=== PATIENT | male | born 1955 | race Caucasian/White ===

== ENCOUNTER 2017-02-28 15:23 | Emergency (ER) | payer BC ==
[2017-02-28 15:37] VITALS: BP 150/75
--- OUTSIDE RECORDS SUMMARY | 2017-02-28 17:14 | XMS REPORT ---
:1955 External Reference #:[id number] Author Organization [facility] Address [address] [place] [address] Phone [phone] Care Team Providers Name Role Phone Marilin Joyce M.D. Care Team Information Plant Machinist Unavailable Marilin Joyce M.D. Primary Care Physician Unavailable Payers Type Date Identification Numbers Payment Provider Subscriber Commercial Policy Number: [id number] [facility] Oneal Henderson [place] PayID: [id number] 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 Active Onset: 04/25/2014 Lymphedema Jarred Webster M.D. Active Onset: 08/17/2013 Difficulty speaking Jarred Webster M.D. Active Onset: 08/17/2013 Tobacco user Jarred Webster M.D. 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 Family History Date Family Member(s) Problem(s) Comments Father Cancer Father Heart Attack Father Stroke Paternal Grandfather due to Diabetes () Paternal Grandmother due to Unknown Causes () Social History Type Date Description Comments Occupation Job Setter Cigarette Use for 15 yrs Was a 1 1/2 pack smoker for 14 years quit 2013 Cigars Former Cigar Smoker 1 Daily Smoked for 15 years Pipe Never Smoked A Pipe Smokeless Tobacco Never Used Smokeless Tobacco ETOH Use Currently rarely consumes alcohol Smoking Patient is a former smoker Allergies, Adverse Reactions, Alerts Date Description Reaction Status Severity Comments 04/01/2007 None active Medications Medication Date Status Form Strength Qnty SIG Indications Ordering Provider Prednisone 02/04/ Active Tablets 10mg 120tab 60 mg a day H91.21 Jarred Louis s for 14 days, Strominge 40 mg a day r, M.D. for 4 days, 20 mg a day for 4 days, 10 mg a day for 4 days, then 5 mg a day for 4 days No Active 12/30/ Hx Unknown Medications 2016 - 2016 Ketoconazole 11/26/ Hx Tablets 200mg 7tabs Take 1 B37.0 Jarred Hunt 2016 - tablet by Strominge 12/29/ mouth daily r, M.DWes 2016 for 1 week for infection No Active 02/26/ Hx Unknown Medications 2014 - 2016 No Active 11/27/ Hx Unknown Medications 2014 - 2014 None 04/01/ Hx Graham Manriquez, 08/09/ 2013 Janumet / Hx 50-500mg one po bid Joyce, 0000 - Marilin 07/24/ M.D. 2014 Atorvastatin / Hx 20mg one tablet Joyce, Calcium 0000 - at hs Marilin 11/27/ M.DWes 2015 Viagra / Hx 50mg As needed Joyce, 0000 - before Marilin 08/17/ sexual M.DWes 2014 intercourse Nicotine Step / Hx 14mg/24 apply patch Joyce, 2 0000 - Hour once daily Marilin 08/17/ M.DWes 2014 Multi For Him / Hx once daily Self - 2013 Hydrocodone / Hx Solution 7.5-325mg/ 500ml 7.5 Mackey, Bitartrate/Aron 0000 - 15ML hydrocodone Marco Serrano taminophen 07/24/ by mouth 2014 every 4 hours as needed pain Magic Mouth / Hx as directed John Rodrigues 0000 - Lex 02/26/ Dexter Serrano 2015 Immunizations CPT Code Status Date Vaccine Lot # [id number] Given 02/07/2014 Influenza Virus Vaccine, 3 Years Of Age And Above, Intramuscular Vital Signs Date Vital Result Comment 02/04/2017 BP Systolic 142 mmHg BP Diastolic 84 mmHg Heart Rate 74 /min Respiratory Rate 17 /min Weight 265.00 lb Weight in kg's 120.204 Height 71 inches 5'11" Height in cm's 180.3 cm BMI (Body Mass Index) 37.0 kg/m2 12/30/2016 BP Systolic 154 mmHg BP Diastolic 98 mmHg Heart Rate 96 /min Respiratory Rate 18 /min Weight 265.00 lb Weight in kg's 120.204 Height 71 inches 5'11" Height in cm's 180.3 cm BMI (Body Mass Index) 37.0 kg/m2 11/26/2016 BP Systolic 141 mmHg BP Diastolic 85 mmHg Heart Rate 84 /min Weight 265.00 lb Weight in kg's 120.204 Height 71 inches 5'11" Height in cm's 180.3 cm BMI (Body Mass Index) 37.0 kg/m2 05/06/2016 Weight 254.00 lb Weight in kg's 115.214 Height 71 inches 5'11" Height in cm's 180.3 cm BMI (Body Mass Index) 35.4 kg/m2 10/30/2015 BP Systolic 137 mmHg BP Diastolic 77 mmHg Heart Rate 70 /min Respiratory Rate 17 /min Weight 246.00 lb Weight in kg's 111.586 Height 71 inches 5'11" Height in cm's 180.3 cm BMI (Body Mass Index) 34.3 kg/m2 02/26/2015 BP Systolic 120 mmHg BP Diastolic 75 mmHg Heart Rate 73 /min Respiratory Rate 17 /min Weight 206.00 lb Weight in kg's 93.442 Height 71 inches 5'11" Height in cm's 180.3 cm BMI (Body Mass Index) 28.7 kg/m2 11/27/2014 BP Systolic 125 mmHg BP Diastolic 75 mmHg Heart Rate 75 /min Respiratory Rate 17 /min Weight 170.00 lb Weight in kg's 77.112 Height 71 inches 5'11" Height in cm's 180.3 cm BMI (Body Mass Index) 23.7 kg/m2 10/17/2014 BP Systolic 112 mmHg BP Diastolic 67 mmHg Heart Rate 81 /min Respiratory Rate 17 /min Weight 160.00 lb Weight in kg's 72.576 Height 71 inches 5'11" Height in cm's 180.3 cm BMI (Body Mass Index) 22.3 kg/m2 O2 % BldC Oximetry 99 % walked the pt for 5mins O2 sat 95% rm air 07/24/2014 BP Systolic 104 mmHg BP Diastolic 76 mmHg Heart Rate 81 /min Respiratory Rate 17 /min Weight 199.00 lb Weight in kg's 90.266 Height 72 inches 6'0" Height in cm's 182.9 cm BMI (Body Mass Index) 27.0 kg/m2 04/25/2014 BP Systolic 139 mmHg BP Diastolic 83 mmHg Heart Rate 83 /min Respiratory Rate 17 /min Weight 199.00 lb Weight in kg's 90.266 Height 72 inches 6'0" Height in cm's 182.9 cm BMI (Body Mass Index) 27.0 kg/m2 03/20/2014 BP Systolic 117 mmHg BP Diastolic 71 mmHg Heart Rate 71 /min Respiratory Rate 17 /min Weight 199.00 lb Weight in kg's 90.266 Height 72 inches 6'0" Height in cm's 182.9 cm BMI (Body Mass Index) 27.0 kg/m2 02/13/2014 BP Systolic 110 mmHg BP Diastolic 66 mmHg Heart Rate 83 /min Respiratory Rate 17 /min Weight 209.00 lb Weight in kg's 94.802 Height 72 inches 6'0" Height in cm's 182.9 cm BMI (Body Mass Index) 28.3 kg/m2 09/13/2013 BP Systolic 133 mmHg BP Diastolic 81 mmHg Heart Rate 94 /min Respiratory Rate 16 /min Weight 271.00 lb Weight in kg's 122.926 Height 72 inches 6'0" Height in cm's 182.9 cm BMI (Body Mass Index) 36.8 kg/m2 09/06/2013 BP Systolic 157 mmHg BP Diastolic 120 mmHg Heart Rate 88 /min Respiratory Rate 16 /min Weight 274.00 lb Weight in kg's 124.286 Height 72 inches 6'0" Height in cm's 182.9 cm BMI (Body Mass Index) 37.2 kg/m2 08/17/2013 BP Systolic 145 mmHg BP Diastolic 90 mmHg Heart Rate 87 /min Respiratory Rate 16 /min Weight 274.00 lb Weight in kg's 124.286 Height 72 inches 6'0" Height in cm's 182.9 cm BMI (Body Mass Index) 37.2 kg/m2 04/01/2007 BP Systolic 93 mmHg BP Diastolic 79 mmHg Heart Rate 96 /min Respiratory Rate 14 /min Results Test Date Test Result H/L Range Note Laboratory test finding 09/12/2013 Blood Urea Nitrogen 14 mg/dL 6-24 Creatinine 09/12/2013 Creatinine 0.86 mg/dL 0.67-1.17 Egfr Non- 91.7 >60 Egfr 117.9 >60 1 Surgical Pathology 09/07/2013 S RUN DATE: 09/09/ <SEE NOTE> 2 1 Because ethnic data is not always readily available, this report includes an eGFR for both -Americans and non- Americans. The National Kidney Disease Education Program (NKDEP) does not endorse the use of the MDRD equation for patients that are not between the ages of 18 and 70, are , have extremes of body size, muscle mass, or nutritional status, or are non- or non-. According to the National Kidney Foundation, irrespective of diagnosis, the stage of the disease is based on the level of kidney function: Stage Description GFR(mL/min/1.73 m(2)) 1 Kidney damage with normal or decreased GFR 90 2 Kidney damage with mild decrease in GFR 60-89 3 Moderate decrease in GFR 30-59 4 Severe decrease in GFR 15-29 5 Kidney failure <15 (or dialysis) 2 RUN DATE: 09/09/13 [facility] LAB LIVE PAGE 1 RUN TIME: [address] [place] [id number] Specimen Inquiry Name: ONEAL HENDERSON : [address]: Jarred Webster MD Acct: [id number] Unit: [id number] AGE: 58 Location: OR Re09/07/13 SEX: M Status: REG SDC SPEC: [id number] DRU: 09/07/13- [facility] DR: Jarred Webster MD REQ: [id number] RECD: 09/07/13144 STATUS: SOUT _ ORDERED: P16 STAIN, LEVEL IV A p16 immunostain, with appropriately reacting controls, is negative in invasive squamous cell carcinoma. Addendum Signed (signature on file) Amy Hooker MD 1715 FINAL DIAGNOSIS Laryngeal mass, biopsy: A. Moderately differentiated invasive squamous cell carcinoma. B. Depth of invasion cannot be accurately ascertained due to the limited nature of the specimen. COMMENTS: An immunohistochemical stain for P16 (HPV surrogate marker) will be performed and will be reported in an addendum. Dr. Hooker has reviewed this case and concurs. PRE-OPERATIVE DIAGNOSIS Laryngeal mass GROSS DESCRIPTION The specimen is received in formalin labeled Oneal Henderson, Laryngeal Mass, and consists of a 1.9 x 1.1 x 0.4 cm. aggregate of zapata-pink, irregular to friable soft tissue fragments admixed with a small amount of red-brown blood clot. The specimen is filtered and submitted entirely, one cassette. CONTINUED ON NEXT PAGE * ML=Testing performed at Main Lab DEPARTMENT OF PATHOLOGY, [address] [place] [address] Eder Steinberg M.D. Director VIRGILIO # [id number] RUN DATE: 09/09/13 [facility] LAB LIVE PAGE 2 RUN TIME: 0291 [facility] [address] [place], [place] [address] Specimen Inquiry Patient: ONEAL HENDERSON [id number] (Continued) GROSS DESCRIPTION (Continued) Signed (signature on file) Eder Steinberg MD 1521 END OF REPORT * ML=Testing performed at Main Lab DEPARTMENT OF PATHOLOGY, [facility] [place], [place] [address] Eder Steinberg M.D. Director VIRGILIO # [id number] Procedures Date CPT Code Description Status 02/04/2017 91077 Binocular Microscopy Completed 12/30/2016 05447 Fiberoptic Laryngoscopy Completed 11/26/2016 23772 Fiberoptic Laryngoscopy Completed 05/06/2016 26740 Fiberoptic Laryngoscopy Completed 10/30/2015 34068 Fiberoptic Laryngoscopy Completed 02/26/2015 34355 Fiberoptic Laryngoscopy Completed 11/27/2014 34686 Fiberoptic Laryngoscopy Completed 10/17/2014 21644 Fiberoptic Laryngoscopy Completed 07/24/2014 04040 Fiberoptic Laryngoscopy Completed 04/25/2014 59097 Fiberoptic Laryngoscopy Completed 03/20/2014 62329 Fiberoptic Laryngoscopy Completed 02/13/2014 38143 Fiberoptic Laryngoscopy Completed 09/07/2013 74437 Laryngoscopy W/TVC Strip,Micro Completed 09/06/2013 38417 Fiberoptic Laryngoscopy Completed 08/17/2013 50200 Behavioral & Qualitative Analysis Of Voice & Completed Resonance 08/17/2013 63064 Fiberoptic Laryngoscopy Completed 04/01/2007 03715 Comprehensive Audiogram Completed 04/01/2007 36957 Comprehensive Audiogram Completed Encounters Type Date Location Provider CPT E/M Dx Office Visit 02/04/2017 9:15a [facility] 03/30/07 aJrred Hunt 43579 H91.21 Maggie Webster Office Visit 09/13/2013 1:30p [facility] 03/30/07 Jarred Hunt 65543 161.0 Maggie Webster Office Visit 08/17/2013 3:30p [facility] 03/30/07 Jarred Hunt 06704 161.0 Maggie Webster 305.1 784.42 Office Visit 04/01/2007 1:45p [facility],After 03/30/07 [place] [address] 389.10 386.55 Plan of Care Future Appointment(s):04/06/2017 10:15 am - Jarred Webster M.D. at [facility] ,After 03/30/810 - Jarred Webster M.D.H91.21 Sudden idiopathic hearing loss, right earNew Medication:Prednisone 10 mgComments:The patient 3 or 4 days ago suddenly lost his hearing in the right ear and there is a lot of distortion. I have to assume this is a sudden idiopathic loss. Audiology is not available today. My recommendation is to start Prednisone today pending the hearing test. The sooner this is started the more likely the success in restoring hearing. The common side effects are stomach upset, insomnia, jitteriness and bloating. The rare devastating side effect is idiosyncratic him necrosis.
--- NOTE | 2017-02-28 17:17 | UC ---
Throat Pain/Nasal [place] HPI - HPI Summary HPI Summary: TWO WEEKS OF SORE THROAT, SINUS CONGESTION AND COUGH. FOUR YEARS AGO DIAGNOSED WITH VOCAL CORD CANCER. PATIENT OF DR GOMEZ. - History of Current Complaint Chief Complaint: UCRespiratory Stated Complaint: SORE THROAT Time Seen by Provider: 02/28/17 16:40 Hx Obtained From: Patient Onset/Duration: Gradual Onset, Lasting Weeks Severity: Moderate Cough: Nonproductive Associated Signs & Symptoms: Positive: Dysphagia, Hoarseness, Sinus Discomfort, Nasal Discharge - Epiglottits Risk Factors Epiglottis Risk Factors: Negative - Allergies/Home Medications Allergies/Adverse Reactions: Allergies Allergy/AdvReac Type Severity Reaction Status Date / Time No Known Allergies Allergy Verified 02/28/17 15:38 Home Medications: Home Medications predniSONE TAB* [Deltasone TAB*] 02/28/17 [History] PMH/Surg Hx/FS Hx/Imm Hx Previously Healthy: Yes - Surgical History Surgical History: Yes Surgery Procedure, Year, and Place: 2 eye surgeries and surgery for cyst on stomas-. recent feeding tube placement, torn meniscus, vasectomy. - Family History Known Family History: Negative: Respiratory Disease - Social History Occupation: Employed Full-time Lives: With Family Alcohol Use: Rare Alcohol Amount: 3 DRINKS/YEAR Substance Use Type: None Smoking Status (MU): Former Smoker Type: Cigarettes Amount Used/How Often: 1PPD 25 YRS Length of Time of Smoking/Using Tobacco: 25 Have You Smoked in the Last Year: Yes When Did the Patient Quit Smoking/Using Tobacco: 04/30/2013 Cessation Counseling: Patient Advised to Stop - Immunization History Most Recent Influenza Vaccination: 2012 Most Recent Tetanus Shot: unknown Most Recent Pneumonia Vaccination: never Review of Systems Constitutional: Negative Skin: Negative Eyes: Negative ENT: Sore Throat, Sinus Congestion Respiratory: Cough Cardiovascular: Negative Gastrointestinal: Negative Genitourinary: Negative Motor: Negative Neurovascular: Negative Musculoskeletal: Negative Neurological: Negative Psychological: Negative Is Patient Immunocompromised?: No All Other Systems Reviewed And Are Negative: Yes Physical Exam Triage Information Reviewed: Yes Appearance: Well-Appearing, No Pain Distress, Well-Nourished Vital Signs: Initial Vital Signs Temp 97.7 F 02/28/17 15:33 Pulse 95 02/28/17 15:33 Resp 16 02/28/17 15:33 BP 150/75 02/28/17 15:33 Pulse Ox 98 02/28/17 15:33 Vital Signs Reviewed: Yes Eye Exam: Normal ENT: Positive: Hearing grossly normal, Pharyngeal erythema, TM dull Dental Exam: Normal Neck exam: Normal Neck: Positive: Supple, Nontender, No Lymphadenopathy Respiratory Exam: Normal Respiratory: Positive: Chest non-tender, Lungs clear, Normal breath sounds, No respiratory distress, No accessory muscle use Cardiovascular Exam: Normal Cardiovascular: Positive: RRR, No Murmur, Pulses Normal Abdominal Exam: Normal Musculoskeletal Exam: Normal Musculoskeletal: Positive: Strength Intact, ROM Intact Neurological Exam: Normal Psychological Exam: Normal Skin Exam: Normal Throat Pain/Nasal Course/Dx - Differential Dx/Diagnosis Differential Diagnosis/HQI/PQRI: Pharyngitis, Sinusitis, Tonsillitis, URI Provider Diagnoses: PHARYNGITIS; SINUSITIS Discharge - Discharge Plan Condition: Stable Disposition: HOME Prescriptions: Amoxicillin/Clavulanate TAB* [Augmentin TAB 875*] 875 mg PO BID #20 tab Patient Education Materials: Pharyngitis (ED), Sinusitis (ED) Referrals: Marilin Joyce MD [Primary Care Provider] - Jarred Webster MD [Medical Doctor] -
== END 2017-02-28 17:14 | disposition home or self-care (01) ==
LOC: UCEAST 15:23
DX: J02.9 Acute pharyngitis, unspecified (principal); J32.9 Chronic sinusitis, unspecified; Z87.891 Personal history of nicotine dependence; Z79.52 Long term (current) use of systemic steroids
CPT/HCPCS: 87651; 99212; G0463

== ENCOUNTER 2021-07-04 13:05 | Inpatient (IN) ==
[2021-07-04] MEDS ORDERED: Etomidate 40 mg/20 ml (2 MG/ML) 20 ml VIAL (40 mg) ONE (13:11)
[2021-07-04] MEDS ORDERED: Rocuronium 50 mg VIAL 10 mg/ml 5 ml VIAL (50 mg) ONE (13:11)
[2021-07-04 14:08] LABS: PCO2 Arterial 49 mmHg (35-45); PO2 Arterial 234 mmHg (80-100)
[2021-07-04 14:10] LABS: Hematocrit 55 % (42-52); Hemoglobin 17.4 g/dL (14.0-18.0); Mean Corpuscular HGB Conc 32 g/dL (31-36); Mean Corpuscular Hemoglobin 30 pg (27-31); Mean Corpuscular Volume 94 fL (80-94); Mean Platelet Volume 8.3 fL (7.4-10.4); Platelet Count 346 10^3/uL (150-450); Red Blood Count 5.88 10^6 /uL (4.18-5.48); Red Cell Distribution Width 17 % (10-15); White Blood Count 19.7 10^3/uL (3.5-10.8)
[2021-07-04] MEDS ORDERED: Piperacillin/Tazobac ADVAN 3.375 GM in NS 0.9% 100 ml BAG 100 ML IV ONE (14:11)
[2021-07-04] MEDS ORDERED: Anidulafungin 200 MG in NS 0.9% 250 ml 200 ML IVPB ONE (14:11)
[2021-07-04 14:38] LABS: High Sens Troponin Baseline 31 pg/mL (<20)
[2021-07-04 14:53] LABS: ABS Basophils 0.1 10^3/ul (0-0.2); ABS Lymphocytes 1.9 10^3/ul (1.0-4.8); ABS Neutrophils 15.6 10^3/ul (1.5-7.7); Eosinophil % 0.2 %; Lymphocyte % 9.9 %; Nucleated Red Blood Cells % 0.1
[2021-07-04 15:00] LABS: ALT 33 U/L (7-52); Albumin 3.5 g/dL (3.2-5.2); Albumin/Globulin Ratio 1.7 (1-3); Alkaline Phosphatase 80 U/L (35-149); Blood Urea Nitrogen 17 mg/dL (6-24); CO2 Carbon Dioxide 28 mmol/L (22-32); Calcium 8.1 mg/dL (8.6-10.3); Chloride 99 mmol/L (101-111); Globulin 2.1 g/dL (2-4); Glucose 146 mg/dL (70-100); Sodium 144 mmol/L (135-145); Total Protein 5.6 g/dL (6.4-8.9); eGFR CKD-EPI 62.1 (>60)
[2021-07-04] MEDS ORDERED: Heparin 5000 UNITS/ML 1 mL VIAL SUBCUT SCH (15:00)
[2021-07-04] MEDS ORDERED: Linezolid 600 MG/ 300 ML IVPB ONE (15:00)
[2021-07-04] MEDS ORDERED: Zosyn per Pharmacy NOTE FOLLOW UP SCH (15:00)
[2021-07-04 15:06] LABS: Anion Gap 17 mmol/L (2-11)
[2021-07-04 15:20] LABS: High Sensitivity Troponin 1 Hr 43 pg/mL (<20)
[2021-07-04] MEDS ORDERED: Azithromycin 500 mg/250 mL NS IVPB ONE (15:30)
[2021-07-04] MEDS ORDERED: Norepinephrine 16MCG/ML BAGD5W 4,000 MCG/250 ML BAG IV ONE (15:52)
[2021-07-04] MEDS: Norepinephrine 16MCG/ML BAGD5W 4,000 MCG/250 ML BAG IV SCH ×3 (15:55→22:42)
[2021-07-04] MEDS ORDERED: Norepinephrine 16MCG/ML BAG NS 4,000 MCG/250 ML BAG IV SCH (16:00)
[2021-07-04 16:35] LABS: Activated Partial Thrombo Time 28.3 seconds (26.0-38.0); INR 1.13 (0.86-1.15)
[2021-07-04] MEDS ORDERED: Perflutren Lipid Microsphere 3 ML VIAL ONE (16:37)
[2021-07-04] MEDS ORDERED: Linezolid 600 MG IVPREMIX(*) 600 MG/300 ML BAG IVPB SCH ×2 (17:00→18:00)
[2021-07-04 17:11] LABS: Magnesium 1.4 mg/dL (1.9-2.7); Phosphorus 2.8 mg/dL (2.5-5.0); Potassium Redraw 4.7 mmol/L (3.5-5.0)
[2021-07-04 17:21] LABS: PCO2 Arterial 46 mmHg (35-45); PO2 Arterial 94 mmHg (80-100)
[2021-07-04 17:37] LABS: Urine Appearance Cloudy; Urine Bilirubin Negative (Negative); Urine Blood 3+ (Negative); Urine Color Amber; Urine Glucose Negative (Negative); Urine Ketones Trace (Negative); Urine Nitrite Negative (Negative); Urine Protein 3+(>=500 mg/dL) (Negative); Urine Specific Gravity 1.024 (1.002-1.030); Urine Urobilinogen Negative (Negative)
[2021-07-04 17:39] LABS: Urine Bacteria 1+ (Absent); Urine Red Blood Cell 3+(>10/hpf) (Absent); Urine Squamous Epithelial Cell Present (Absent); Urine White Blood Cell 3+(>20/hpf) (Absent)
[2021-07-04] MEDS ORDERED: Magnesium Sulf 4 GM/100 ML IV 4,000 MG/100 ML BAG IVPB ONE (18:00)
[2021-07-04] MEDS: Saline FLUSH-CENTRAL 10 ML SYRINGE CENT\\PICC SCH (18:06)
[2021-07-04] MEDS: Azithromycin 500 mg/250 ml NS 500 MG/250 ML BAG IVPB SCH (18:11)
[2021-07-04] MEDS: Pantoprazole VIAL 40 MG VIAL IV SCH (18:15)
[2021-07-04] MEDS: Chlorhexidine MOUTHWASH 0.12% 15 ML UDC SWISH SPIT SCH ×2 (18:17→21:17)
[2021-07-04] MEDS ORDERED: Iodixanol (CONTRAST) 320 MG/ML 100 ML SDV IV ONE (18:46)
[2021-07-04] MEDS ORDERED: NS 0.9% 1000 ml BAG 1,000 ML IV ONE (19:21)
[2021-07-04] MEDS ORDERED: levETIRAcetam 1000MG IVPREMIX 1,000 MG/100 ML BAG IVPB ONE (19:34)
[2021-07-04] MEDS ORDERED: Lorazepam PYXIS KEY PRN (19:49)
[2021-07-04 20:14] LABS: TSH Ultra Thyroid Stim Horm 30.77 mcIU/mL (0.34-5.60)
[2021-07-04 20:25] LABS: Vitamin B12 465 pg/mL (180-914)
[2021-07-04] MEDS ORDERED: Dextrose 50% Syringe 50 ml 25 GM/50 ML SYRINGE IV PUSH PRN (21:01)
[2021-07-04] MEDS ORDERED: Hydrocortisone INJ 100 MG/2ML 2 ML VIAL IV ONE (21:10)
[2021-07-04 21:16] LABS: PCO2 Arterial 35 mmHg (35-45); PO2 Arterial 87 mmHg (80-100)
[2021-07-04] MEDS: ZOSYN 3.375 GM Q8H per EXTENDED INFUSION IV SCH (21:17)
[2021-07-04 21:45] LABS: Free T3 3.2 pg/mL (2.5-3.9)
[2021-07-04] MEDS ORDERED: Acetaminophen IV 1 GM/100ML 100 ML IV ONE (21:45)
[2021-07-04 21:47] LABS: Free T4 0.78 ng/dL (0.61-1.12)
[2021-07-04 22:45] LABS: Hematocrit 51 % (42-52); Hemoglobin 16.2 g/dL (14.0-18.0); Mean Corpuscular HGB Conc 32 g/dL (31-36); Mean Corpuscular Hemoglobin 29 pg (27-31); Mean Corpuscular Volume 91 fL (80-94); Platelet Count 339 10^3/uL (150-450); Red Blood Count 5.63 10^6 /uL (4.18-5.48); Red Cell Distribution Width 16 % (10-15)
[2021-07-04 22:46] LABS: ABS Basophils 0.1 10^3/ul (0-0.2); ABS Lymphocytes 1.3 10^3/ul (1.0-4.8); ABS Monocytes 2.7 10^3/ul (0-0.8); ABS Neutrophils 17.9 10^3/ul (1.5-7.7); ABS Nucleated RBC 0.1 10^3/ul; Lymphocyte % 5.9 %; Nucleated Red Blood Cells % 0.3
[2021-07-04 23:21] LABS: Magnesium 2.3 mg/dL (1.9-2.7); Potassium 4.6 mmol/L (3.5-5.0); eGFR CKD-EPI 56.3 (>60)
[2021-07-05] MEDS: Heparin 5000 UNITS/ML 1 mL VIAL SUBCUT SCH ×4 (00:26→22:10)
[2021-07-05] MEDS ORDERED: fentaNYL 100 mcg/2 ml 50 MCG/ML VIAL IV SLOW PU PRN (00:29)
[2021-07-05 01:18] LABS: PCO2 Arterial 33 mmHg (35-45); PO2 Arterial 94 mmHg (80-100)
[2021-07-05] MEDS: Norepinephrine 16MCG/ML BAGD5W 4,000 MCG/250 ML BAG IV SCH ×2 (01:51→16:09)
[2021-07-05] MEDS: LORazepam 2 mg VIAL 1 ml IV PUSH PRN ×6 (02:14→21:05)
[2021-07-05] MEDS: Chlorhexidine MOUTHWASH 0.12% 15 ML UDC SWISH SPIT SCH ×6 (02:16→22:11)
[2021-07-05 04:29] LABS: ABS Lymphocytes 0.7 10^3/ul (1.0-4.8); ABS Monocytes 1.2 10^3/ul (0-0.8); ABS Neutrophils 15.7 10^3/ul (1.5-7.7); Hematocrit 50 % (42-52); Hemoglobin 16.1 g/dL (14.0-18.0); Lymphocyte % 4.1 %; Mean Corpuscular HGB Conc 32 g/dL (31-36); Mean Corpuscular Hemoglobin 29 pg (27-31); Mean Corpuscular Volume 90 fL (80-94); Platelet Count 299 10^3/uL (150-450); Red Blood Count 5.61 10^6 /uL (4.18-5.48); Red Cell Distribution Width 15 % (10-15); White Blood Count 17.6 10^3/uL (3.5-10.8)
[2021-07-05 04:32] LABS: PCO2 Arterial 41 mmHg (35-45); PO2 Arterial 144 mmHg (80-100)
[2021-07-05] MEDS: ZOSYN 3.375 GM Q8H per EXTENDED INFUSION IV SCH ×3 (04:35→22:13)
[2021-07-05 05:03] LABS: Albumin 3.1 g/dL (3.2-5.2); Albumin/Globulin Ratio 1.7 (1-3); Calcium 8.2 mg/dL (8.6-10.3); Globulin 1.8 g/dL (2-4); Phosphorus 1.7 mg/dL (2.5-5.0); Potassium 4.4 mmol/L (3.5-5.0); Total Bilirubin 0.6 mg/dL (0.2-1.0); Total Protein 4.9 g/dL (6.4-8.9); eGFR CKD-EPI 54.8 (>60)
[2021-07-05] MEDS: Hydrocortisone INJ 100 MG/2ML 2 ML VIAL IV SCH ×3 (05:49→22:10)
[2021-07-05] MEDS: Levothyroxine 100 MCG/5 ML VIAL IV SCH (05:50)
[2021-07-05] MEDS: Saline FLUSH-CENTRAL 10 ML SYRINGE CENT\\PICC SCH ×2 (05:50→18:12)
[2021-07-05] MEDS ORDERED: Linezolid 600 MG IVPREMIX(*) 600 MG/300 ML BAG IVPB SCH (06:00)
[2021-07-05] MEDS ORDERED: Sodium Phosphate IV 15 MMOLE in NS 0.9% 250 ml 250 ML IV ONE (09:00)
[2021-07-05] MEDS: levETIRAcetam 500 MG IVPREMIX 500 MG/100 ML BAG IV SCH ×2 (09:06→22:13)
[2021-07-05] MEDS ORDERED: Meperidine 50 mg/ml SYRINGE 1 ml IV PRN (09:41)
[2021-07-05 11:07] LABS: PO2 Arterial 170 mmHg (80-100)
[2021-07-05 11:21] LABS: PCO2 Arterial <20 mmHg (35-45)
[2021-07-05 11:58] LABS: PCO2 Arterial 45 mmHg (35-45); PO2 Arterial 143 mmHg (80-100)
[2021-07-05 15:39] LABS: PCO2 Arterial 43 mmHg (35-45); PO2 Arterial 113 mmHg (80-100)
[2021-07-05] MEDS: Azithromycin 500 mg/250 ml NS 500 MG/250 ML BAG IVPB SCH (18:03)
[2021-07-05] MEDS: Pantoprazole VIAL 40 MG VIAL IV SCH (18:03)
[2021-07-05] MEDS: Anidulafungin 100 MG in NS 0.9% 100 ml BAG 100 ML IVPB SCH (18:50)
[2021-07-06] MEDS: Norepinephrine 16MCG/ML BAGD5W 4,000 MCG/250 ML BAG IV SCH (02:58)
[2021-07-06] MEDS: Chlorhexidine MOUTHWASH 0.12% 15 ML UDC SWISH SPIT SCH ×4 (03:15→16:48)
[2021-07-06] MEDS: LORazepam 2 mg VIAL 1 ml IV PUSH PRN (03:15)
[2021-07-06] MEDS: ZOSYN 3.375 GM Q8H per EXTENDED INFUSION IV SCH ×3 (04:39→20:21)
[2021-07-06 04:43] LABS: PCO2 Arterial 41 mmHg (35-45); PO2 Arterial 110 mmHg (80-100)
[2021-07-06 04:44] LABS: Hematocrit 46 % (42-52); Hemoglobin 14.6 g/dL (14.0-18.0); Mean Corpuscular HGB Conc 32 g/dL (31-36); Mean Corpuscular Hemoglobin 29 pg (27-31); Mean Corpuscular Volume 90 fL (80-94); Platelet Count 279 10^3/uL (150-450); Red Blood Count 5.04 10^6 /uL (4.18-5.48); Red Cell Distribution Width 16 % (10-15); White Blood Count 18.1 10^3/uL (3.5-10.8)
[2021-07-06 04:48] LABS: ABS Lymphocytes 0.7 10^3/ul (1.0-4.8); ABS Monocytes 1.6 10^3/ul (0-0.8); ABS Neutrophils 15.8 10^3/ul (1.5-7.7); Lymphocyte % 3.8 %
[2021-07-06] MEDS: Heparin 5000 UNITS/ML 1 mL VIAL SUBCUT SCH ×3 (04:54→22:45)
[2021-07-06] MEDS: Saline FLUSH-CENTRAL 10 ML SYRINGE CENT\\PICC SCH ×2 (04:54→17:25)
[2021-07-06] MEDS: Levothyroxine 100 MCG/5 ML VIAL IV SCH (04:54)
[2021-07-06] MEDS: Hydrocortisone INJ 100 MG/2ML 2 ML VIAL IV SCH ×3 (04:54→17:24)
[2021-07-06] MEDS: NS 0.9% 1,000 ML IV SCH ×2 (05:10→06:41)
[2021-07-06 05:21] LABS: Calcium 8.2 mg/dL (8.6-10.3); Magnesium 1.7 mg/dL (1.9-2.7); Phosphorus 3.3 mg/dL (2.5-5.0); eGFR CKD-EPI 60.4 (>60)
[2021-07-06] MEDS ORDERED: fentaNYL 100 mcg/2 ml 50 MCG/ML VIAL IV SLOW PU ONE (06:28)
[2021-07-06] MEDS ORDERED: fentaNYL 100 mcg/2 ml 50 MCG/ML VIAL ONE (06:30)
[2021-07-06] MEDS: levETIRAcetam 500 MG IVPREMIX 500 MG/100 ML BAG IV SCH (07:31)
[2021-07-06] MEDS ORDERED: Polyethyl Glycol/Propylene Gly OPHTH.SOLN BOTH EYES PRN (07:42)
[2021-07-06] MEDS ORDERED: Furosemide 20 mg/2 ml IV VIAL IV SLOW PU ONE (10:52)
[2021-07-06] MEDS ORDERED: Magnesium Sulfate 2 gm BAG 2 GM/50 ML BAG IVPB ONE (10:56)
[2021-07-06 14:22] LABS: PCO2 Arterial 55 mmHg (35-45); PO2 Arterial 95 mmHg (80-100)
[2021-07-06] MEDS: Albuterol/Ipratropium NEB.SOL (2.5/0.5 MG) 3 ML NEB.SOLN INH SCH ×3 (15:32→23:02)
[2021-07-06] MEDS ORDERED: D10W IV ONE (16:15)
[2021-07-06] MEDS: Azithromycin 500 mg/250 ml NS 500 MG/250 ML BAG IVPB SCH (17:24)
[2021-07-06] MEDS: Pantoprazole VIAL 40 MG VIAL IV SCH (17:24)
[2021-07-06] MEDS: Anidulafungin 100 MG in NS 0.9% 100 ml BAG 100 ML IVPB SCH (17:24)
[2021-07-06] MEDS ORDERED: Dextrose 50% Syringe 50 ml 25 GM/50 ML SYRINGE IV PUSH ONE (17:49)
[2021-07-07] MEDS: Albuterol/Ipratropium NEB.SOL (2.5/0.5 MG) 3 ML NEB.SOLN INH SCH ×5 (02:52→19:26)
[2021-07-07] MEDS: Hydrocortisone INJ 100 MG/2ML 2 ML VIAL IV SCH (04:07)
[2021-07-07] MEDS: ZOSYN 3.375 GM Q8H per EXTENDED INFUSION IV SCH ×3 (05:08→20:42)
[2021-07-07] MEDS ORDERED: Dextrose 50% Syringe 50 ml 25 GM/50 ML SYRINGE IV PUSH ONE (05:49)
[2021-07-07 06:21] LABS: ABS Lymphocytes 0.6 10^3/ul (1.0-4.8); ABS Monocytes 1.3 10^3/ul (0-0.8); ABS Neutrophils 10.4 10^3/ul (1.5-7.7); Eosinophil % 0.1 %; Hematocrit 43 % (42-52); Hemoglobin 13.9 g/dL (14.0-18.0); Lymphocyte % 4.9 %; Mean Corpuscular HGB Conc 32 g/dL (31-36); Mean Corpuscular Hemoglobin 29 pg (27-31); Mean Corpuscular Volume 91 fL (80-94); Mean Platelet Volume 8.1 fL (7.4-10.4); Platelet Count 237 10^3/uL (150-450); Red Blood Count 4.78 10^6 /uL (4.18-5.48); Red Cell Distribution Width 16 % (10-15); White Blood Count 12.3 10^3/uL (3.5-10.8)
[2021-07-07] MEDS: Heparin 5000 UNITS/ML 1 mL VIAL SUBCUT SCH ×3 (06:21→22:41)
[2021-07-07] MEDS: Levothyroxine 100 MCG/5 ML VIAL IV SCH (06:29)
[2021-07-07] MEDS: Saline FLUSH-CENTRAL 10 ML SYRINGE CENT\\PICC SCH ×2 (06:30→17:26)
[2021-07-07 06:58] LABS: Calcium 8.3 mg/dL (8.6-10.3); Magnesium 1.9 mg/dL (1.9-2.7); Potassium 3.7 mmol/L (3.5-5.0); eGFR CKD-EPI 65.8 (>60)
[2021-07-07] MEDS ORDERED: Magnesium Sulfate IV 1GM/100ML 1 GM/100 ML BAG IV ONE (07:06)
[2021-07-07] MEDS: KCL 20 MEQ/100 ML IVPREMIX 20 MEQ/100 ML BAG IV SCH ×2 (09:00→11:23)
[2021-07-07] MEDS ORDERED: Furosemide 20 mg/2 ml IV VIAL IV SLOW PU ONE (13:34)
[2021-07-07] MEDS: Pantoprazole VIAL 40 MG VIAL IV SCH (17:20)
[2021-07-07] MEDS: Anidulafungin 100 MG in NS 0.9% 100 ml BAG 100 ML IVPB SCH (17:20)
[2021-07-07] MEDS: Azithromycin 500 mg/250 ml NS 500 MG/250 ML BAG IVPB SCH (17:26)
[2021-07-08] MEDS: ZOSYN 3.375 GM Q8H per EXTENDED INFUSION IV SCH ×3 (05:08→22:25)
[2021-07-08] MEDS: Heparin 5000 UNITS/ML 1 mL VIAL SUBCUT SCH ×3 (06:18→22:25)
[2021-07-08] MEDS: Saline FLUSH-CENTRAL 10 ML SYRINGE CENT\\PICC SCH ×2 (06:19→20:26)
[2021-07-08] MEDS: Levothyroxine 100 MCG/5 ML VIAL IV SCH (06:19)
[2021-07-08 06:34] LABS: ABS Lymphocytes 0.7 10^3/ul (1.0-4.8); ABS Monocytes 0.9 10^3/ul (0-0.8); ABS Neutrophils 6.7 10^3/ul (1.5-7.7); Eosinophil % 0.3 %; Hematocrit 48 % (42-52); Hemoglobin 14.7 g/dL (14.0-18.0); Mean Corpuscular HGB Conc 31 g/dL (31-36); Mean Corpuscular Hemoglobin 30 pg (27-31); Mean Corpuscular Volume 98 fL (80-94); Mean Platelet Volume 8.5 fL (7.4-10.4); Platelet Count 202 10^3/uL (150-450); Red Blood Count 4.91 10^6 /uL (4.18-5.48); Red Cell Distribution Width 17 % (10-15); White Blood Count 8.3 10^3/uL (3.5-10.8)
[2021-07-08 06:42] LABS: CO2 Carbon Dioxide 30 mmol/L (22-32); Calcium 8.3 mg/dL (8.6-10.3); Chloride 104 mmol/L (101-111); Magnesium 1.8 mg/dL (1.9-2.7); Sodium 143 mmol/L (135-145)
[2021-07-08 06:48] LABS: Blood Urea Nitrogen 18 mg/dL (6-24); Glucose 72 mg/dL (70-100); eGFR CKD-EPI 65.8 (>60)
[2021-07-08 06:50] LABS: Anion Gap 9 mmol/L (2-11)
[2021-07-08] MEDS: Albuterol/Ipratropium NEB.SOL (2.5/0.5 MG) 3 ML NEB.SOLN INH SCH ×4 (08:09→20:25)
[2021-07-08] MEDS ORDERED: Magnesium Sulfate 2 gm BAG 2 GM/50 ML BAG IVPB ONE (08:57)
[2021-07-08] MEDS: Azithromycin 500 mg/250 ml NS 500 MG/250 ML BAG IVPB SCH (17:54)
[2021-07-08] MEDS: Pantoprazole VIAL 40 MG VIAL IV SCH (17:54)
[2021-07-08] MEDS: Anidulafungin 100 MG in NS 0.9% 100 ml BAG 100 ML IVPB SCH (21:40)
[2021-07-09] MEDS: Levothyroxine 100 MCG/5 ML VIAL IV SCH (05:22)
[2021-07-09] MEDS: Heparin 5000 UNITS/ML 1 mL VIAL SUBCUT SCH ×3 (05:23→23:12)
[2021-07-09] MEDS: ZOSYN 3.375 GM Q8H per EXTENDED INFUSION IV SCH (05:23)
[2021-07-09] MEDS: Saline FLUSH-CENTRAL 10 ML SYRINGE CENT\\PICC SCH ×2 (05:27→18:21)
[2021-07-09 05:41] LABS: Hematocrit 45 % (42-52); Hemoglobin 14.6 g/dL (14.0-18.0); Mean Corpuscular HGB Conc 32 g/dL (31-36); Mean Corpuscular Hemoglobin 29 pg (27-31); Mean Corpuscular Volume 90 fL (80-94); Platelet Count 209 10^3/uL (150-450); Red Blood Count 5.01 10^6 /uL (4.18-5.48); Red Cell Distribution Width 16 % (10-15)
[2021-07-09 06:29] LABS: Calcium 8.4 mg/dL (8.6-10.3); Magnesium 1.9 mg/dL (1.9-2.7); Potassium 3.7 mmol/L (3.5-5.0); eGFR CKD-EPI 74.5 (>60)
[2021-07-09] MEDS: Albuterol/Ipratropium NEB.SOL (2.5/0.5 MG) 3 ML NEB.SOLN INH SCH ×4 (07:31→21:01)
[2021-07-09] MEDS: cefTRIAXone 1 gm/50 mL D5W 1 GM/50 ML BAG IV SCH (10:28)
[2021-07-09] MEDS ORDERED: Iodixanol (CONTRAST) 320 MG/ML 100 ML SDV IV ONE (11:57)
[2021-07-09] MEDS ORDERED: Perflutren Lipid Microsphere 3 ML VIAL ONE (15:42)
[2021-07-09] MEDS: Pantoprazole VIAL 40 MG VIAL IV SCH (18:17)
[2021-07-10] MEDS: Saline FLUSH-CENTRAL 10 ML SYRINGE CENT\\PICC SCH ×2 (05:39→19:46)
[2021-07-10] MEDS: Heparin 5000 UNITS/ML 1 mL VIAL SUBCUT SCH ×3 (05:45→21:38)
[2021-07-10 05:49] LABS: HDL Cholesterol 20.1 mg/dL
[2021-07-10] MEDS: Albuterol/Ipratropium NEB.SOL (2.5/0.5 MG) 3 ML NEB.SOLN INH SCH ×4 (07:41→22:00)
[2021-07-10] MEDS ORDERED: Regadenoson 0.4 MG/5 ML SYRINGE ONE (09:30)
[2021-07-10] MEDS: cefTRIAXone 1 gm/50 mL D5W 1 GM/50 ML BAG IV SCH (12:29)
[2021-07-10] MEDS: Pantoprazole VIAL 40 MG VIAL IV SCH (16:50)
[2021-07-11] MEDS ORDERED: Al Hydrox/Mg Hydrox/Simet LIQ 30 ML UDC PO ONE (01:56)
[2021-07-11 03:18] LABS: ABS Eosinophils 0.2 10^3/ul (0-0.6); ABS Lymphocytes 0.7 10^3/ul (1.0-4.8); ABS Monocytes 1.1 10^3/ul (0-0.8); ABS Neutrophils 7.3 10^3/ul (1.5-7.7); Eosinophil % 2.6 %; Hematocrit 46 % (42-52); Hemoglobin 15.1 g/dL (14.0-18.0); Lymphocyte % 7.8 %; Mean Corpuscular HGB Conc 33 g/dL (31-36); Mean Corpuscular Hemoglobin 29 pg (27-31); Mean Corpuscular Volume 89 fL (80-94); Mean Platelet Volume 7.7 fL (7.4-10.4); Nucleated Red Blood Cells % 0.1; Platelet Count 197 10^3/uL (150-450); Red Blood Count 5.13 10^6 /uL (4.18-5.48); Red Cell Distribution Width 16 % (10-15); White Blood Count 9.4 10^3/uL (3.5-10.8)
[2021-07-11 03:40] LABS: High Sensitivity Troponin 1 Hr 19 pg/mL (<20)
[2021-07-11 04:00] LABS: Calcium 8.6 mg/dL (8.6-10.3); Potassium 3.7 mmol/L (3.5-5.0)
[2021-07-11 04:06] LABS: eGFR CKD-EPI 76.2 (>60)
[2021-07-11] MEDS: Saline FLUSH-CENTRAL 10 ML SYRINGE CENT\\PICC SCH ×2 (05:15→18:44)
[2021-07-11] MEDS: Heparin 5000 UNITS/ML 1 mL VIAL SUBCUT SCH ×3 (06:27→21:32)
[2021-07-11] MEDS ORDERED: Potassium Chlor 20 meq TAB.ER PO ONE (07:16)
[2021-07-11] MEDS: cefTRIAXone 1 gm/50 mL D5W 1 GM/50 ML BAG IV SCH (08:37)
[2021-07-11] MEDS: Albuterol/Ipratropium NEB.SOL (2.5/0.5 MG) 3 ML NEB.SOLN INH SCH (08:50)
[2021-07-11] MEDS ORDERED: Albuterol/Ipratropium NEB.SOL (2.5/0.5 MG) 3 ML NEB.SOLN INH PRN (08:51)
[2021-07-11] MEDS: Albuterol HFA INHALER 8 gm MDI INH SCH ×3 (10:46→20:43)
[2021-07-11] MEDS: Pantoprazole VIAL 40 MG VIAL IV SCH (16:16)
[2021-07-12] MEDS: Heparin 5000 UNITS/ML 1 mL VIAL SUBCUT SCH ×3 (05:30→21:50)
[2021-07-12] MEDS: Saline FLUSH-CENTRAL 10 ML SYRINGE CENT\\PICC SCH ×2 (05:32→17:53)
[2021-07-12] MEDS: Albuterol HFA INHALER 8 gm MDI INH SCH ×4 (08:04→19:56)
[2021-07-12] MEDS: cefTRIAXone 1 gm/50 mL D5W 1 GM/50 ML BAG IV SCH (12:16)
[2021-07-12] MEDS: Pantoprazole VIAL 40 MG VIAL IV SCH (17:15)
[2021-07-13] MEDS: Saline FLUSH-CENTRAL 10 ML SYRINGE CENT\\PICC SCH ×2 (06:35→16:46)
[2021-07-13] MEDS: Heparin 5000 UNITS/ML 1 mL VIAL SUBCUT SCH ×3 (08:16→21:18)
[2021-07-13] MEDS: Albuterol HFA INHALER 8 gm MDI INH SCH ×4 (08:22→20:00)
[2021-07-13] MEDS: Pantoprazole VIAL 40 MG VIAL IV SCH (17:59)
[2021-07-14 06:35] LABS: Calcium 9.4 mg/dL (8.6-10.3); Potassium 4.3 mmol/L (3.5-5.0); eGFR CKD-EPI 76.2 (>60)
[2021-07-14] MEDS: Heparin 5000 UNITS/ML 1 mL VIAL SUBCUT SCH ×3 (06:40→21:21)
[2021-07-14] MEDS: Saline FLUSH-CENTRAL 10 ML SYRINGE CENT\\PICC SCH ×2 (07:01→16:22)
[2021-07-14] MEDS: Albuterol HFA INHALER 8 gm MDI INH SCH ×2 (07:26→11:25)
[2021-07-14] MEDS ORDERED: Albuterol HFA INHALER 8 gm MDI INH PRN (11:25)
[2021-07-14] MEDS: Pantoprazole VIAL 40 MG VIAL IV SCH (16:21)
[2021-07-15] MEDS: Saline FLUSH-CENTRAL 10 ML SYRINGE CENT\\PICC SCH ×2 (05:10→16:56)
[2021-07-15 06:24] LABS: Calcium 9.4 mg/dL (8.6-10.3); Potassium 4.4 mmol/L (3.5-5.0); eGFR CKD-EPI 81.6 (>60)
[2021-07-15 08:18] LABS: Mean Platelet Volume 7.9 fL (7.4-10.4); Platelet Count 222 10^3/uL (150-450)
[2021-07-15 08:28] LABS: INR 1.05 (0.86-1.15)
[2021-07-15] MEDS ORDERED: ceFAZolin VIAL 1 GM in NS 0.9% 50 ML 50 ML IVPB ONE (12:00)
[2021-07-15] MEDS ORDERED: fentaNYL 100 mcg/2 ml 50 MCG/ML VIAL ONE (12:10)
[2021-07-15] MEDS ORDERED: Midazolam 2 mg/2 ml VIAL 1 mg/ml 2 ml VIAL (2 mg) ONE (12:10)
[2021-07-15] MEDS ORDERED: Bupivacaine 0.5% SDV PF 30ML VIAL ONE (12:55)
[2021-07-15] MEDS ORDERED: D5W 1/2 NS 1000 ml BAG 1,000 ML IV SCH (16:00)
[2021-07-15] MEDS: Pantoprazole VIAL 40 MG VIAL IV SCH (17:03)
[2021-07-16] MEDS: Saline FLUSH-CENTRAL 10 ML SYRINGE CENT\\PICC SCH (05:18)
[2021-07-16 06:21] LABS: Calcium 9.4 mg/dL (8.6-10.3); Potassium 4.4 mmol/L (3.5-5.0); eGFR CKD-EPI 72.9 (>60)
[2021-07-16 12:10] VITALS: BP 99/61
== END 2021-07-16 14:20 | DRG 710 ==
LOC: ED 13:05 → EDHOLD 14:51 → SUATTDRO 14:51 → ICU 15:10 → MEDTELE 07-07 14:07
PROVIDERS: ADMIT Internal Medicine; ATTEND Internal Medicine

== ENCOUNTER 2021-07-12 07:18 | Inpatient (IN) ==
[2021-07-16] MEDS ORDERED: Senna TAB 8.6 mg TAB G TUBE PRN (15:47)
[2021-07-16] MEDS ORDERED: Dextran 70/Hypromellose Tears Eye Drops 15 ml BTL (for Artificials Tears) BOTH EYES PRN (16:01)
[2021-07-17 07:53] LABS: ABS Eosinophils 0.3 10^3/ul (0-0.6); ABS Lymphocytes 0.6 10^3/ul (1.0-4.8); ABS Neutrophils 5.8 10^3/ul (1.5-7.7); Eosinophil % 3.7 %; Hematocrit 51 % (42-52); Hemoglobin 16.7 g/dL (14.0-18.0); Lymphocyte % 7.3 %; Mean Corpuscular HGB Conc 33 g/dL (31-36); Mean Corpuscular Hemoglobin 29 pg (27-31); Mean Corpuscular Volume 89 fL (80-94); Mean Platelet Volume 8.5 fL (7.4-10.4); Nucleated Red Blood Cells % 0.1; Platelet Count 232 10^3/uL (150-450); Red Blood Count 5.71 10^6 /uL (4.18-5.48); Red Cell Distribution Width 16 % (10-15); White Blood Count 7.7 10^3/uL (3.5-10.8)
[2021-07-17 08:39] LABS: Albumin 3.7 g/dL (3.2-5.2); Albumin/Globulin Ratio 1.4 (1-3); Calcium 9.5 mg/dL (8.6-10.3); Globulin 2.6 g/dL (2-4); Potassium 4.5 mmol/L (3.5-5.0); Total Bilirubin 0.6 mg/dL (0.2-1.0); Total Protein 6.3 g/dL (6.4-8.9); eGFR CKD-EPI 70.6 (>60)
[2021-07-17] MEDS: Enoxaparin 40 MG/0.4 ML SYR SUBCUT SCH (10:04)
[2021-07-18] MEDS: Enoxaparin 40 MG/0.4 ML SYR SUBCUT SCH (10:29)
[2021-07-19] MEDS: Enoxaparin 40 MG/0.4 ML SYR SUBCUT SCH (10:09)
[2021-07-20] MEDS: Enoxaparin 40 MG/0.4 ML SYR SUBCUT SCH (10:16)
[2021-07-21] MEDS: Enoxaparin 40 MG/0.4 ML SYR SUBCUT SCH (09:52)
[2021-07-22] MEDS: Enoxaparin 40 MG/0.4 ML SYR SUBCUT SCH (09:13)
[2021-07-23] MEDS: Enoxaparin 40 MG/0.4 ML SYR SUBCUT SCH (08:10)
[2021-07-24 07:08] LABS: ABS Eosinophils 0.2 10^3/ul (0-0.6); ABS Lymphocytes 1.3 10^3/ul (1.0-4.8); ABS Monocytes 0.9 10^3/ul (0-0.8); ABS Neutrophils 4.2 10^3/ul (1.5-7.7); Hematocrit 52 % (42-52); Hemoglobin 17.1 g/dL (14.0-18.0); Lymphocyte % 20.3 %; Mean Corpuscular HGB Conc 33 g/dL (31-36); Mean Corpuscular Hemoglobin 29 pg (27-31); Mean Corpuscular Volume 89 fL (80-94); Mean Platelet Volume 9.3 fL (7.4-10.4); Platelet Count 260 10^3/uL (150-450); Red Blood Count 5.83 10^6 /uL (4.18-5.48); Red Cell Distribution Width 15 % (10-15); White Blood Count 6.6 10^3/uL (3.5-10.8)
[2021-07-24 07:29] LABS: Albumin 3.9 g/dL (3.2-5.2); Albumin/Globulin Ratio 1.4 (1-3); Calcium 9.8 mg/dL (8.6-10.3); Globulin 2.7 g/dL (2-4); Total Bilirubin 0.5 mg/dL (0.2-1.0); Total Protein 6.6 g/dL (6.4-8.9); eGFR CKD-EPI 60.4 (>60)
[2021-07-24 07:47] LABS: Potassium 5.7 mmol/L (3.5-5.0)
[2021-07-24] MEDS: Enoxaparin 40 MG/0.4 ML SYR SUBCUT SCH (08:42)
[2021-07-25] MEDS: Enoxaparin 40 MG/0.4 ML SYR SUBCUT SCH (09:48)
[2021-07-26 06:17] VITALS: BP 125/66
[2021-07-26] MEDS: Enoxaparin 40 MG/0.4 ML SYR SUBCUT SCH (09:17)
== END 2021-07-26 12:45 | disposition home health service (06) | DRG 58 ==
LOC: PMRU 07-16 14:51
PROVIDERS: ADMIT Physical Medicine & Rehabilitation; ATTEND Physical Medicine & Rehabilitation